=== PATIENT | male | born 1955 | race Caucasian/White ===

== ENCOUNTER 2016-08-10 08:16 | Day surgery (SDC) | payer OTHER ==
[2016-08-10] VITALS (12 sets, daily range): BP systolic 104–137; BP diastolic 68–79; PULSE 52–65; TEMP 98.3
[~2016-08-10] VITALS: Ht 175.4 cm; Wt 106.8 kg
[~2016-08-10 08:16] MED LIST: ASPIRIN 32325 MG/TAB PO; ASPIRIN 81M81 MG/TA2 PO; ASPIRIN E.C. 8181 MG PO; COLESTID5 GM/PACKE PO; CRESTOR 10MG10 MG PO; CRESTOR5 MG PO; FISH OIL1 IU PO; FISH OIL1000 MG PO; IMDUR 60MG60 MG/TAB PO; LIPITOR 40MG TA40 MG PO; LIPITOR 80MG80 MG; LIPITOR20 MG PO; NITRO-DUR0.4 MG/PAT TD; NITROQUICK0.4 MG SL; NORVASC2.5 MG PO; PLAVIX 75MG TAB75 MG PO; TOPROL XL 25MG25 MG PO; TOPROL XL 50MG50 MG PO; TYLENOL 325MG325 MG PO; ZESTRIL 5MG5 MG PO; ZESTRIL2.5 MG PO; ZETIA10 MG PO
[2016-08-10] MEDS ORDERED: NORVASC 5MG5 MG/TAB PO (08:46)
[2016-08-10 09:04] LABS: HEMATOCRIT 43.1 % (42.0-52.0); HEMOGLOBIN 15.3 g/dl (13.5-18.0); MEAN CELL VOLUME 91 fl (80.0-100.0); MEAN CORPUSCULAR HEMOGLOBIN 32 pg (27.0-31.0); MEAN CORPUSCULAR HGB CONC 36 g/dl (33.0-37.0); MEAN PLATELET VOLUME 9.4 fl (7.4-10.4); PLATELET COUNT 186 K/mm3 (130-400); RED BLOOD COUNT 4.74 M/mm3 (4.20-5.60); WHITE BLOOD COUNT 4.8 K/mm3 (4.8-10.8)
[2016-08-10 09:13] LABS: CALCIUM 9.1 mg/dL (8.4-10.2); CREATININE, serum 0.77 mg/dL (0.66-1.25); POTASSIUM 4.4 mmol/L (3.4-5.0)
[2016-08-10 09:16] LABS: INR 1.1 (0.8-3.0); PROTHROMBIN TIME 12.3 SECONDS (9.7-12.8)
[2016-08-10] MEDS ORDERED: TENORMIN 2525 MG/TAB PO (11:47)
== END 2016-08-10 14:23 | disposition home or self-care (01) ==
LOC: EUO 08:16 → COL.RAD 08:40 → EUO 14:23
PROVIDERS: Internal Medicine Cardiovascular Disease
DX: I25.10 Atherosclerotic heart disease of native coronary artery without angina pectoris (principal); I20.0 Unstable angina; R94.39 Abnormal result of other cardiovascular function study; I10 Essential (primary) hypertension; I35.1 Nonrheumatic aortic (valve) insufficiency; E78.5 Hyperlipidemia, unspecified; I25.2 Old myocardial infarction; Z95.5 Presence of coronary angioplasty implant and graft; Z80.0 Family history of malignant neoplasm of digestive organs
CPT/HCPCS: C1769; C1887; C1894; J1644; J2250; J3010

== ENCOUNTER 2017-02-25 11:38 | Day surgery (SDC) | payer OTHER ==
[2017-02-25] VITALS (482 sets, daily range): BP systolic 109–154; BP diastolic 68–95; PULSE 50–57; TEMP 97.4–98.2; O2SAT 90–100
[~2017-02-25] VITALS: Ht 175.3 cm; Wt 103.4 kg
[~2017-02-25 11:38] MED LIST changes: +NORVASC 5MG5 MG/TAB PO; +TENORMIN 2525 MG/TAB PO
[2017-02-25 12:11] LABS: HEMATOCRIT 44.1 % (42.0-52.0); HEMOGLOBIN 15.7 g/dl (13.5-18.0); MEAN CELL VOLUME 91 fl (80.0-100.0); MEAN CORPUSCULAR HEMOGLOBIN 33 pg (27.0-31.0); MEAN CORPUSCULAR HGB CONC 36 g/dl (33.0-37.0); MEAN PLATELET VOLUME 9.5 fl (7.4-10.4); PLATELET COUNT 167 K/mm3 (130-400); RED BLOOD COUNT 4.83 M/mm3 (4.20-5.60); REDCELL DISTRIBUTION WIDTH-CV 12.1 % (11.5-14.5)
[2017-02-25] MEDS ORDERED: CRESTOR20 MG PO (12:15)
[2017-02-25 12:21] LABS: INR 1.1 (0.8-3.0); PROTHROMBIN TIME 11.7 SECONDS (9.7-12.8)
[2017-02-25 12:23] LABS: CALCIUM 9.3 mg/dL (8.4-10.2); CREATININE, serum 0.83 mg/dL (0.66-1.25); POTASSIUM 4.3 mmol/L (3.4-5.0)
[2017-02-26] VITALS (484 sets, daily range): BP systolic 123–151; BP diastolic 61–108; PULSE 54–82; TEMP 97.2–98.2; O2SAT 86–99
[2017-02-26 05:21] LABS: BASO # 0.1 (0.0-0.2); BASO % 0.7 % (0.0-2.0); EOS # 0.3 (0.0-0.7); EOS % 4.2 % (0-4.0); GRAN # 4.8 (1.4-6.5); GRAN % 62.1 % (42.2-75.2); HEMATOCRIT 42.1 % (42.0-52.0); LYMPH # 1.8 (1.2-3.4); LYMPH % 23.6 % (20.0-51.0); MEAN CELL VOLUME 91 fl (80.0-100.0); MEAN CORPUSCULAR HEMOGLOBIN 32 pg (27.0-31.0); MEAN CORPUSCULAR HGB CONC 36 g/dl (33.0-37.0); MEAN PLATELET VOLUME 9.7 fl (7.4-10.4); MONO # 0.7 (0.1-0.6); PLATELET COUNT 153 K/mm3 (130-400); RED BLOOD COUNT 4.65 M/mm3 (4.20-5.60); REDCELL DISTRIBUTION WIDTH-CV 12.4 % (11.5-14.5); WHITE BLOOD COUNT 7.7 K/mm3 (4.8-10.8)
[2017-02-26 05:34] LABS: CALCIUM 8.8 mg/dL (8.4-10.2); CREATININE, serum 0.82 mg/dL (0.66-1.25); POTASSIUM 4.4 mmol/L (3.4-5.0)
== END 2017-02-26 10:30 | disposition home or self-care (01) ==
LOC: COL.CAR 11:38 → ICU 14:55 → COL.CAR 02-26 10:30
PROVIDERS: Internal Medicine Cardiovascular Disease
DX: I25.110 Atherosclerotic heart disease of native coronary artery with unstable angina pectoris (principal); Z95.5 Presence of coronary angioplasty implant and graft; E78.5 Hyperlipidemia, unspecified; I10 Essential (primary) hypertension; R01.1 Cardiac murmur, unspecified
CPT/HCPCS: OP; C1725; C1769; C1874; C1887; C9600; J0583; J1644; J2250; J3010; Q9967

== ENCOUNTER 2017-03-08 08:53 | Emergency (ER) | payer OTHER ==
[~2017-03-08] VITALS: Ht 177.8 cm; Wt 109.1 kg
[~2017-03-08 08:53] MED LIST changes: +CRESTOR20 MG PO
[2017-03-08 08:57] VITALS: TEMP 97.9
[2017-03-08 09:23] LABS: BASO # 0.1 (0.0-0.2); BASO % 1.2 % (0.0-2.0); EOS # 0.4 (0.0-0.7); EOS % 6.3 % (0-4.0); GRAN # 2.8 (1.4-6.5); GRAN % 48.7 % (42.2-75.2); HEMATOCRIT 42.9 % (42.0-52.0); HEMOGLOBIN 15.5 g/dl (13.5-18.0); LYMPH # 1.9 (1.2-3.4); LYMPH % 32.4 % (20.0-51.0); MEAN CELL VOLUME 91 fl (80.0-100.0); MEAN CORPUSCULAR HEMOGLOBIN 33 pg (27.0-31.0); MEAN CORPUSCULAR HGB CONC 36 g/dl (33.0-37.0); MEAN PLATELET VOLUME 9.7 fl (7.4-10.4); MONO # 0.6 (0.1-0.6); MONO % 11.1 % (1.7-9.3); PLATELET COUNT 174 K/mm3 (130-400); RED BLOOD COUNT 4.73 M/mm3 (4.20-5.60); REDCELL DISTRIBUTION WIDTH-CV 12.1 % (11.5-14.5); WHITE BLOOD COUNT 5.7 K/mm3 (4.8-10.8)
[2017-03-08 09:25] LABS: PROTHROMBIN TIME 11.2 SECONDS (9.7-12.8)
[2017-03-08 09:26] LABS: ADJUSTED CALCIUM 8.8 mg/dL (8.4-10.2); ALANINE AMINOTRANSFERASE 55 U/L (21-72); ALBUMIN 4.4 gm/dL (3.5-5.0); ALKALINE PHOSPHATASE 74 U/L (50-136); ANION GAP 9 mmol/L (7-16); BILIRUBIN,TOTAL 0.7 mg/dL (0.0-1.0); BLOOD UREA NITROGEN 10 mg/dL (9-20); C-REACTIVE PROTEIN < 0.5 mg/dL (0.0-0.9); CALCIUM 9.1 mg/dL (8.4-10.2); CARBON DIOXIDE 26 mmol/L (22-30); CHLORIDE 104 mmol/L (98-107); CREATININE, serum 0.79 mg/dL (0.66-1.25); GLUCOSE 119 mg/dL (74-106); POTASSIUM 4.3 mmol/L (3.4-5.0); SODIUM 139 mmol/L (137-145); TOTAL PROTEIN 7.5 gm/dL (6.4-8.2)
[2017-03-08 09:28] LABS: PARTIAL THROMBOPLASTIN TIME 31.6 SECONDS (26.0-37.0)
[2017-03-08 09:34] LABS: TROPONIN-I < 0.012 ng/mL (0.000-0.034)
[2017-03-08 11:20] VITALS: BP 125/73; PULSE 60
== END 2017-03-08 11:21 | disposition home or self-care (01) ==
LOC: COL.ER 08:53
PROVIDERS: Family Medicine
DX: R07.2 Precordial pain (principal); I25.10 Atherosclerotic heart disease of native coronary artery without angina pectoris; Z95.5 Presence of coronary angioplasty implant and graft; Z79.82 Long term (current) use of aspirin
CPT/HCPCS: J1885

== ENCOUNTER 2017-05-30 13:24 | Outpatient (RCR) | payer OTHER ==
[~2017-05-30 13:24] MED LIST changes: +IMDUR 30MG30 MG/TAB PO; +ZESTRIL 10MG10 MG PO
== END 2017-06-10 15:45 | disposition home or self-care (01) ==
LOC: COL.CR 13:24
DX: Z48.812 Encounter for surgical aftercare following surgery on the circulatory system (principal); Z95.5 Presence of coronary angioplasty implant and graft

== ENCOUNTER 2017-08-16 08:09 | Day surgery (SDC) | payer OTHER ==
[~2017-08-16] VITALS: Ht 175.4 cm; Wt 102.9 kg
[2017-08-16 09:13] LABS: HEMATOCRIT 42.8 % (42.0-52.0); HEMOGLOBIN 15.3 g/dl (13.5-18.0); MEAN CELL VOLUME 91 fl (80.0-100.0); MEAN CORPUSCULAR HEMOGLOBIN 33 pg (27.0-31.0); MEAN CORPUSCULAR HGB CONC 36 g/dl (33.0-37.0); MEAN PLATELET VOLUME 11.2 fl (7.4-10.4); PLATELET COUNT 216 K/mm3 (130-400); RED BLOOD COUNT 4.69 M/mm3 (4.20-5.60)
[2017-08-16 09:15] VITALS: BP 111/60; PULSE 53; TEMP 97.9
[2017-08-16 09:44] LABS: INR 1.1 (0.8-3.0); PROTHROMBIN TIME 12.7 SECONDS (9.7-12.8)
[2017-08-16 09:50] LABS: CREATININE, serum 0.9 mg/dL (0.66-1.25); POTASSIUM 4.6 mmol/L (3.4-5.0)
[2017-08-16 09:52] VITALS: BP 114/68; PULSE 44
[2017-08-16 10:27] VITALS: BP 94/62; PULSE 52; TEMP 98
[2017-08-16 10:45] VITALS: BP 94/62; PULSE 52; TEMP 98
[2017-08-16] MEDS ORDERED: RANEXA 500MG T500 MG PO (10:48)
[2017-08-16 10:57] VITALS: BP 102/64; PULSE 54; TEMP 98
[2017-08-16 11:12] VITALS: BP 92/60; PULSE 50; TEMP 98
== END 2017-08-16 12:58 | disposition home or self-care (01) ==
LOC: COL.CAR 08:09
PROVIDERS: Internal Medicine Cardiovascular Disease
DX: I25.110 Atherosclerotic heart disease of native coronary artery with unstable angina pectoris (principal); I10 Essential (primary) hypertension; E78.2 Mixed hyperlipidemia; I08.3 Combined rheumatic disorders of mitral, aortic and tricuspid valves; I25.2 Old myocardial infarction; Z95.5 Presence of coronary angioplasty implant and graft; Z88.1 Allergy status to other antibiotic agents; Z88.8 Allergy status to other drugs, medicaments and biological substances; Z79.82 Long term (current) use of aspirin; Z79.01 Long term (current) use of anticoagulants; Z86.010 Personal history of colon polyps; Z82.49 Family history of ischemic heart disease and other diseases of the circulatory system; Z80.0 Family history of malignant neoplasm of digestive organs
CPT/HCPCS: C1769; C1887; J1644; J2250; J3010; Q9967

== ENCOUNTER → 2018-06-27 | Outpatient (CLI) | payer OTHER ==
[~2018-06-27] MED LIST changes: +RANEXA 500MG T500 MG PO
== END ==
LOC: COL.PUL 08:00
DX: R06.09 Other forms of dyspnea (principal)

== ENCOUNTER → 2018-07-18 | Outpatient (CLI) | payer OTHER | LOC: COL.PUL 09:42 | DX: R06.09 Other forms of dyspnea (principal) | CPT/HCPCS: J7674 ==

== ENCOUNTER 2019-01-08 16:40 | Emergency (ER) | payer OTHER ==
[~2019-01-08] VITALS: Ht 175.3 cm; Wt 109.5 kg
[2019-01-08 16:43] VITALS: TEMP 97.3
[2019-01-08 17:31] LABS: BASO # 0.1 (0.0-0.2); BASO % 1.3 % (0.0-2.0); EOS # 1.3 (0.0-0.7); EOS % 15.2 % (0-4.0); GRAN % 48.7 % (42.2-75.2); HEMATOCRIT 43.8 % (42.0-52.0); HEMOGLOBIN 15.5 g/dl (13.5-18.0); LYMPH # 2.1 (1.2-3.4); LYMPH % 25.7 % (20.0-51.0); MEAN CELL VOLUME 92 fl (80.0-100.0); MEAN CORPUSCULAR HEMOGLOBIN 33 pg (27.0-31.0); MEAN CORPUSCULAR HGB CONC 35 g/dl (33.0-37.0); MEAN PLATELET VOLUME 9.6 fl (7.4-10.4); MONO # 0.7 (0.1-0.6); MONO % 8.7 % (1.7-9.3); PLATELET COUNT 178 K/mm3 (130-400); RED BLOOD COUNT 4.77 M/mm3 (4.20-5.60); REDCELL DISTRIBUTION WIDTH-CV 12.3 % (11.5-14.5)
[2019-01-08 17:36] LABS: INR 1.1 (0.8-3.0); PROTHROMBIN TIME 12.3 SECONDS (9.7-12.8)
[2019-01-08 17:39] LABS: PARTIAL THROMBOPLASTIN TIME 29.9 SECONDS (26.0-37.0)
[2019-01-08 17:43] LABS: ALANINE AMINOTRANSFERASE 60 U/L (21-72); ALKALINE PHOSPHATASE 81 U/L (50-136); ANION GAP 10 mmol/L (7-16); AST,SGOT 54 U/L (15-37); BILIRUBIN,TOTAL 0.8 mg/dL (0.0-1.0); BLOOD UREA NITROGEN 12 mg/dL (9-20); CALCIUM 9.1 mg/dL (8.4-10.2); CARBON DIOXIDE 26 mmol/L (22-30); CHLORIDE 105 mmol/L (98-107); CREATININE, serum 0.86 (0.66-1.25); GLUCOSE 111 mg/dL (74-106); SODIUM 142 mmol/L (137-145); TOTAL PROTEIN 7.5 gm/dL (6.4-8.2)
[2019-01-08 17:58] LABS: TROPONIN-I < 0.012 ng/mL (0.000-0.035)
[2019-01-08 20:34] VITALS: BP 142/79; PULSE 56
== END 2019-01-08 20:34 | disposition home or self-care (01) ==
LOC: COL.ER 16:40
PROVIDERS: Family Medicine
DX: R07.89 Other chest pain (principal); I25.10 Atherosclerotic heart disease of native coronary artery without angina pectoris; Z95.5 Presence of coronary angioplasty implant and graft; Z79.82 Long term (current) use of aspirin; Z79.02 Long term (current) use of antithrombotics/antiplatelets
CPT/HCPCS: J7030

== ENCOUNTER 2019-04-12 06:16 | Day surgery (SDC) | payer MEDICARE, OTHER ==
[2019-04-12] VITALS (11 sets, daily range): BP systolic 111–150; BP diastolic 67–102; PULSE 43–59; TEMP 98.5
[~2019-04-12] VITALS: Ht 175.4 cm; Wt 109.0 kg
[2019-04-12] MEDS ORDERED: NITRO-DUR0.4 MG/PAT TD (06:46)
[2019-04-12] MEDS ORDERED: EFFIENT10 MG PO (06:48)
[2019-04-12] MEDS ORDERED: KRILL OIL 5001 EACH PO (06:50)
[2019-04-12 06:51] LABS: HEMATOCRIT 43.4 % (42.0-52.0); HEMOGLOBIN 15.4 g/dl (13.5-18.0); MEAN CELL VOLUME 92 fl (80.0-100.0); MEAN CORPUSCULAR HEMOGLOBIN 33 pg (27.0-31.0); MEAN CORPUSCULAR HGB CONC 36 g/dl (33.0-37.0); MEAN PLATELET VOLUME 9.8 fl (7.4-10.4); PLATELET COUNT 152 K/mm3 (130-400); RED BLOOD COUNT 4.72 M/mm3 (4.20-5.60); REDCELL DISTRIBUTION WIDTH-CV 11.8 % (11.5-14.5)
[2019-04-12 06:55] LABS: PROTHROMBIN TIME 12.1 SECONDS (9.7-12.8)
[2019-04-12 06:58] LABS: CREATININE, serum 0.78 (0.66-1.25); POTASSIUM 4.5 mmol/L (3.4-5.0)
--- NOTE | 2019-04-12 09:10 | NUR ---
ALL MEDICATIONS GIVEN VORB WITH MD. SEE MERGE FOR ALL MEDICATION ADMIN TIMES. SEE MERGE FOR ALL RASS ASSESSMENTS DURING AND POST PROCEDURE. POSITIVE BARBEAU'S TEST IN THE RIGHT WRIST. RADIAL PULSE +1. NITRO PASTE APPLIED PRIOR TO PROCEDURE, REFER TO MAR.
--- NOTE | 2019-04-12 10:00 | NUR ---
Patient transported back to EU room 14 at this time. Patient hooked up to monitoring equipment, VS stable, patient denies any pain at this time. PATRIZIA Rose at bedside. Visualized TR band with RN. TR band remains in place with 12 ml of air in the band. No oozing or hematoma noted. Site soft and nontender around TR band. Cap refil <3 seconds. Discussed importance of wrist restrictions with patient and spouse. Bed in locked and lowest position, call light within reach.
--- NOTE | 2019-04-12 10:05 | NUR ---
Pt returned to EU 14 per bed s/p heart cath. Pt resting well, at bedside.
[2019-04-12] MEDS ORDERED: ZEBETA 5MG5 MG PO (10:17)
--- NOTE | 2019-04-12 12:05 | NUR ---
Pt has ambulated voided and vanessa PO intake s n/v.
--- NOTE | 2019-04-12 13:05 | NUR ---
Radial compression band removed from R radial cath site. Site remains soft, C/D/I. Site covered with bandaid and gauze and wrapped with coban. PIV removed with catheter intact.
--- NOTE | 2019-04-12 13:25 | NUR ---
Pt discharged per w/c by nurse with .
== END 2019-04-12 17:34 | disposition home or self-care (01) ==
LOC: COL.CAR 06:16
PROVIDERS: Internal Medicine Cardiovascular Disease
DX: I25.110 Atherosclerotic heart disease of native coronary artery with unstable angina pectoris (principal); Z95.5 Presence of coronary angioplasty implant and graft; I10 Essential (primary) hypertension; E78.5 Hyperlipidemia, unspecified; I08.3 Combined rheumatic disorders of mitral, aortic and tricuspid valves; I35.1 Nonrheumatic aortic (valve) insufficiency; I25.2 Old myocardial infarction; Z82.49 Family history of ischemic heart disease and other diseases of the circulatory system; Z88.1 Allergy status to other antibiotic agents; Z88.8 Allergy status to other drugs, medicaments and biological substances; Z79.899 Other long term (current) drug therapy; Z79.82 Long term (current) use of aspirin
CPT/HCPCS: C1769; C1887; J1644; J2250; J3010; Q9967

== ENCOUNTER → 2020-02-20 | Outpatient (CLI) | payer MEDICARE, OTHER ==
[~2020-02-20] MED LIST changes: +BRILINTA90 MG PO; +EFFIENT10 MG PO; +KRILL OIL 5001 EACH PO; +LIPITOR 80MG80 MG PO; -NITROQUICK0.4 MG SL; +NITROSTAT0.4 MG/TAB SL; +ZEBETA 5MG5 MG PO
== END ==
LOC: COL.LAB 08:00 → EDSTATUS 02-26 08:30 → SDCO 02-26 08:30
DX: Z86.010 Personal history of colon polyps (principal)

== ENCOUNTER 2020-03-03 17:20 | Outpatient (RCR) | payer MEDICARE, OTHER ==
[2020-03-04] MEDS ORDERED: ZEBETA 5MG5 MG PO ×2 (07:40→10:48)
[2020-03-04] MEDS ORDERED: BRILINTA90 MG PO (07:40)
[2020-03-04] MEDS ORDERED: LIPITOR 80MG80 MG PO (07:41)
[2020-03-04] MEDS ORDERED: GNC L-ARGININE500 MG PO (10:49)
== END 2020-03-09 | disposition home or self-care (01) ==
LOC: COL.CR
DX: Z48.812 Encounter for surgical aftercare following surgery on the circulatory system (principal); Z95.5 Presence of coronary angioplasty implant and graft

== ENCOUNTER 2020-03-04 06:09 | Day surgery (SDC) | payer MEDICARE, OTHER ==
[2020-03-04] VITALS (20 sets, daily range): BP systolic 88–137; BP diastolic 58–89; PULSE 44–56; TEMP 98.3
[~2020-03-04] VITALS: Ht 175.4 cm; Wt 98.6 kg
[2020-03-04 07:40] LABS: HEMATOCRIT 41.4 % (42.0-52.0); HEMOGLOBIN 14.6 g/dl (13.5-18.0); MEAN CELL VOLUME 94 fl (80.0-100.0); MEAN CORPUSCULAR HEMOGLOBIN 33 pg (27.0-31.0); MEAN CORPUSCULAR HGB CONC 35 g/dl (33.0-37.0); MEAN PLATELET VOLUME 9.8 fl (7.4-10.4); PLATELET COUNT 169 K/mm3 (130-400); RED BLOOD COUNT 4.41 M/mm3 (4.20-5.60); REDCELL DISTRIBUTION WIDTH-CV 12.5 % (11.5-14.5)
[2020-03-04] MEDS ORDERED: ZEBETA 5MG5 MG PO ×2 (07:40→10:48)
[2020-03-04] MEDS ORDERED: BRILINTA90 MG PO (07:40)
[2020-03-04] MEDS ORDERED: LIPITOR 80MG80 MG PO (07:41)
--- NOTE | 2020-03-04 07:41 | NUR ---
Initial visit; Patient had requested Carousel Attendant visit; Carousel Attendant offered comfort, encouragement and prayer prior to his surgical procedure. Patient and his thanked Carousel Attendant for visit.
[2020-03-04 07:42] LABS: INR 1.2 (0.8-3.0); PROTHROMBIN TIME 13.6 SECONDS (9.7-12.8)
[2020-03-04 07:45] LABS: CALCIUM 8.8 mg/dL (8.4-10.2); CREATININE, serum 0.76 (0.66-1.25); POTASSIUM 4.1 mmol/L (3.4-5.0)
--- NOTE | 2020-03-04 08:38 | NUR ---
SEE MERGE DOCUMENTATIONFOR MEDICATION ADMINISTRATION TIMES AND INTRA/POST PROCEDURE SEDATION ASSESSMENTS. RIGHT HAND BARBEAU TEST POSITIVE.
--- NOTE | 2020-03-04 09:16 | NUR ---
Pt returned from procedure,report from PATRIZIA Ang.
--- NOTE | 2020-03-04 10:21 | NUR ---
Pt called Krystin Ang nurse into room.Pt c/o tighness at elbow.Pressure applied by Irasema Ang.Dr Bradshaw in to see pt.ROSHAN wrap applied by high density press laborer nurse and ice as ordered by Dr Bradshaw.Will continue to monitor.
--- NOTE | 2020-03-04 10:21 | NUR ---
RN CALLED TO ROOM BY PT . PT C/O SWELLING AT RIGHT ELBOW. SWELLING NOTED BY RN; PRESSURE IMMEDIATELY APPLIED. DR CRAIG NOTIFIED AND ARRIVING TO SEE PT. HEMATOMA MANUALLY REDUCED BY THIS RN. ORDERS TO APPLY ROSHAN WRAP AND ICE TO AFFECTED AREA. PT EDUCATED OF CONTINUED S/SX TO REPORT TO NURSE. PT DENIES PAIN OR SENSATION CHANGE TO RIGHT HAND. CAPILLARY REFILL <3 SEC, ADEQUATE SPO2 WAVEFORM FROM RIGHT INDEX FINGER PRESENT ON MONITOR. PATRIZIA HERRERA PRESENT AND UPDATED.
[2020-03-04] MEDS ORDERED: GNC L-ARGININE500 MG PO (10:49)
--- NOTE | 2020-03-04 11:43 | NUR ---
Pressure held to right arm.Dr jenni Walsh Rn in to assess site.
--- NOTE | 2020-03-04 12:10 | NUR ---
Pressure held for 10 min as ordered,another 10min ordered.will continue to monitor.
--- NOTE | 2020-03-04 12:20 | NUR ---
ORDER FROM DR HARDIN TO PLACE 2ND TR BAND PROXIMAL TO FIRST BAND AT SLIGHTLY LOWER PRESSURE. INITIAL BAND OVER PUNCTURE SITE WITH 8 CC AIR PER PATRIZIA HERRERA. 2ND BAND PLACED PROXIMAL TO THIS WITH 5 CC AIR. REPORT OF THIS GIVEN TO PATRIZIA HERRERA AND DR HARDIN.
--- NOTE | 2020-03-04 13:34 | NUR ---
1 ml of air removed from TR band.
--- NOTE | 2020-03-04 17:28 | NUR ---
Discharge instructions given to pt.Pt verbalizes understanding.INT removed,catheter tip intact.Pt escorted out via wheelchair by this nurse.
== END 2020-03-04 17:35 | disposition home or self-care (01) ==
LOC: COL.CAR 06:09
PROVIDERS: Internal Medicine Cardiovascular Disease
DX: I25.110 Atherosclerotic heart disease of native coronary artery with unstable angina pectoris (principal); I10 Essential (primary) hypertension; I25.2 Old myocardial infarction; E78.2 Mixed hyperlipidemia; Z95.5 Presence of coronary angioplasty implant and graft; I34.1 Nonrheumatic mitral (valve) prolapse; Z88.8 Allergy status to other drugs, medicaments and biological substances; Z88.1 Allergy status to other antibiotic agents; Z79.82 Long term (current) use of aspirin
CPT/HCPCS: J1644; J2250; J3010; Q9967

== ENCOUNTER 2020-03-12 13:46 | Outpatient (RCR) | payer MEDICARE, OTHER ==
[~2020-03-12 13:46] MED LIST changes: +GNC L-ARGININE500 MG PO
== END 2020-03-14 10:24 | disposition home or self-care (01) ==
LOC: COL.CR 13:46
DX: Z48.812 Encounter for surgical aftercare following surgery on the circulatory system (principal); Z95.5 Presence of coronary angioplasty implant and graft

== ENCOUNTER 2020-03-25 08:02 | Day surgery (SDC) | payer MEDICARE, OTHER ==
[~2020-03-25] VITALS: Ht 175.3 cm; Wt 98.5 kg
[2020-03-25 08:51] VITALS: BP 113/86; PULSE 59; TEMP 97.9
[2020-03-25 09:40] VITALS: BP 104/77; PULSE 61; TEMP 98.2
[2020-03-25 09:55] VITALS: BP 101/66; PULSE 56
[2020-03-25 10:10] VITALS: BP 119/73; PULSE 55
== END 2020-03-25 10:20 | disposition home or self-care (01) ==
LOC: SDCO
DX: Z12.11 Encounter for screening for malignant neoplasm of colon (principal); Z86.010 Personal history of colon polyps; K64.0 First degree hemorrhoids; K62.89 Other specified diseases of anus and rectum; I25.10 Atherosclerotic heart disease of native coronary artery without angina pectoris; I25.2 Old myocardial infarction; I35.1 Nonrheumatic aortic (valve) insufficiency; E78.5 Hyperlipidemia, unspecified; Z95.818 Presence of other cardiac implants and grafts; Z20.828 Contact with and (suspected) exposure to other viral communicable diseases; Z79.82 Long term (current) use of aspirin; Z79.899 Other long term (current) drug therapy; Z79.02 Long term (current) use of antithrombotics/antiplatelets; Z88.1 Allergy status to other antibiotic agents; Z88.8 Allergy status to other drugs, medicaments and biological substances
CPT/HCPCS: J2704; J7120

== ENCOUNTER 2020-10-17 13:17 | Outpatient (RCR) | payer MEDICARE, OTHER | END 2020-10-21 | disposition home or self-care (01) | LOC: COL.CR | DX: Z48.812 Encounter for surgical aftercare following surgery on the circulatory system (principal); Z95.5 Presence of coronary angioplasty implant and graft ==

== ENCOUNTER 2020-11-21 15:16 | Outpatient (RCR) | payer MEDICARE, OTHER | END 2020-11-24 06:34 | disposition still patient (30) | LOC: COL.CR 15:16 | DX: Z48.812 Encounter for surgical aftercare following surgery on the circulatory system (principal); Z95.5 Presence of coronary angioplasty implant and graft ==

== ENCOUNTER 2020-12-01 14:19 | Outpatient (RCR) | payer SELFPAY | END 2021-02-22 | disposition home or self-care (01) | LOC: COL.CR | DX: Z02.89 Encounter for other administrative examinations (principal) ==

== ENCOUNTER → 2021-02-25 | Outpatient (CLI) | payer MEDICARE, OTHER | LOC: COL.RAD 08:02 | DX: M47.812 Spondylosis without myelopathy or radiculopathy, cervical region (principal) ==

== ENCOUNTER 2022-01-01 16:39 | Emergency (ER) | payer MEDICARE, OTHER ==
[~2022-01-01] VITALS: Ht 175.3 cm; Wt 95.5 kg
[~2022-01-01 16:39] MED LIST changes: +CARDIZEM120 MG PO; +PRINIVIL10 MG PO
[2022-01-01 17:02] LABS: HEMOGLOBIN 15.5 g/dl (13.5-18.0); MEAN CELL VOLUME 91 fl (80.0-100.0); MEAN CORPUSCULAR HEMOGLOBIN 33 pg (27-31); MEAN CORPUSCULAR HGB CONC 36 g/dl (33.0-37.0); MEAN PLATELET VOLUME 10.4 fl (7.4-10.4); PLATELET COUNT 127 K/mm3 (130-400); RED BLOOD COUNT 4.74 M/mm3 (4.20-5.60); REDCELL DISTRIBUTION WIDTH-CV 12.2 % (11.5-14.5)
[2022-01-01 17:17] LABS: PARTIAL THROMBOPLASTIN TIME 30.8 SECONDS (26.0-37.0)
[2022-01-01 17:21] LABS: ALANINE AMINOTRANSFERASE 44 U/L (0-55); ALBUMIN 3.5 gm/dL (3.4-4.8); ALKALINE PHOSPHATASE 72 U/L (40-150); ANION GAP 12 mmol/L (7-16); AST,SGOT 35 U/L (5-34); BILIRUBIN,TOTAL 0.6 mg/dL (0.2-1.2); BLOOD UREA NITROGEN 15 mg/dL (8-26); CALCIUM 8.8 mg/dL (8.4-10.2); CARBON DIOXIDE 23 mmol/L (23-31); CHLORIDE 104 mmol/L (98-107); CREATININE, serum 0.98 mg/dL (0.72-1.25); GLUCOSE 147 mg/dL (70-99); POTASSIUM 4.1 mmol/L (3.5-4.5); SODIUM 139 mmol/L (136-145); TOTAL PROTEIN 7.2 gm/dL (6.2-8.1)
[2022-01-01 17:39] LABS: TROPONIN-I < 0.010 ng/mL (0.00-0.033)
[2022-01-01 19:05] LABS: EOSINOPHIL 1 % (0-4); LYMPHOCYTE 59 % (20.0-51.0); NEUTROPHILS 23 % (42.0-75.2)
[2022-01-01 19:13] LABS: PLATELET ESTIMATE DECREASED (NORMAL)
[2022-01-01 20:50] VITALS: BP 122/85; PULSE 63
[2022-01-02 08:55] LABS: PATHOLOGY DIFF REVIEW OK +
== END 2022-01-01 20:50 | disposition home or self-care (01) ==
LOC: COL.ER 16:39
PROVIDERS: Emergency Medicine
DX: U07.1 COVID-19 (principal); D72.819 Decreased white blood cell count, unspecified; Z95.5 Presence of coronary angioplasty implant and graft; Z28.310 Unvaccinated for COVID-19

== ENCOUNTER 2022-03-23 15:58 | Observation (INO) | payer MEDICARE, OTHER ==
[~2022-03-23] VITALS: Ht 175.3 cm; Wt 94.3 kg
[2022-03-23 16:48] LABS: BASO # 0.1 K/mm3 (0.0-0.2); EOS # 0.6 K/mm3 (0.0-0.7); EOS % 8.6 % (0.0-4.0); GRAN # 3.5 K/mm3 (1.4-6.5); GRAN % 49.8 % (42.2-75.2); HEMATOCRIT 38.8 % (42.0-52.0); LYMPH # 2.1 K/mm3 (1.2-3.4); MEAN CELL VOLUME 92 fl (80.0-100.0); MEAN CORPUSCULAR HEMOGLOBIN 33 pg (27-31); MEAN CORPUSCULAR HGB CONC 36 g/dl (33.0-37.0); MEAN PLATELET VOLUME 9.3 fl (7.4-10.4); MONO # 0.7 K/mm3 (0.1-0.6); MONO % 10.5 % (1.7-9.3); PLATELET COUNT 189 K/mm3 (130-400); RED BLOOD COUNT 4.24 M/mm3 (4.20-5.60); REDCELL DISTRIBUTION WIDTH-CV 12.3 % (11.5-14.5)
[2022-03-23 17:08] LABS: ALANINE AMINOTRANSFERASE 21 U/L (0-55); ALBUMIN 3.8 gm/dL (3.4-4.8); ALKALINE PHOSPHATASE 87 U/L (40-150); ANION GAP 10 mmol/L (7-16); AST,SGOT 19 U/L (5-34); BILIRUBIN,TOTAL 0.6 mg/dL (0.2-1.2); BLOOD UREA NITROGEN 14 mg/dL (8-26); CALCIUM 9.4 mg/dL (8.4-10.2); CARBON DIOXIDE 23 mmol/L (23-31); CHLORIDE 105 mmol/L (98-107); CREATININE, serum 0.89 mg/dL (0.72-1.25); GLUCOSE 126 mg/dL (70-99); POTASSIUM 4.2 mmol/L (3.5-4.5); SODIUM 138 mmol/L (136-145); TOTAL PROTEIN 7.2 gm/dL (6.2-8.1)
[2022-03-23 17:15] LABS: TROPONIN-I < 0.010 ng/mL (0.00-0.033)
[2022-03-23] MEDS ORDERED: NORVASC 5MG5 MG/TAB PO (18:52)
[2022-03-23] MEDS ORDERED: PRINIVIL10 MG PO (18:53)
[2022-03-23] MEDS ORDERED: ZETIA 10MG TAB10 MG PO (21:19)
[2022-03-23 23:08] LABS: HEMOGLOBIN 12.8 g/dl (13.5-18.0); MEAN CELL VOLUME 92 fl (80.0-100.0); MEAN CORPUSCULAR HEMOGLOBIN 33 pg (27-31); MEAN CORPUSCULAR HGB CONC 36 g/dl (33.0-37.0); MEAN PLATELET VOLUME 9.5 fl (7.4-10.4); PLATELET COUNT 162 K/mm3 (130-400); RED BLOOD COUNT 3.91 M/mm3 (4.20-5.60); REDCELL DISTRIBUTION WIDTH-CV 12.5 % (11.5-14.5)
[2022-03-23 23:16] LABS: HEMATOCRIT 36.1 % (42.0-52.0)
[2022-03-23 23:19] LABS: INR 1.2 (0.8-3.0); PROTHROMBIN TIME 13.4 SECONDS (9.7-12.8)
[2022-03-23 23:22] LABS: PARTIAL THROMBOPLASTIN TIME 32.3 SECONDS (26.0-37.0)
[2022-03-24] VITALS (16 sets, daily range): BP systolic 98–133; BP diastolic 53–83; PULSE 50–66; TEMP 97.7–98.1
[2022-03-24 06:23] LABS: CREATININE, serum 0.77 mg/dL (0.72-1.25); MAGNESIUM 2.1 mg/dL (1.6-2.6)
[2022-03-24 06:37] LABS: BASO # 0.1 K/mm3 (0.0-0.2); BASO % 0.9 % (0.0-2.0); EOS # 0.6 K/mm3 (0.0-0.7); EOS % 7.9 % (0.0-4.0); GRAN # 3.9 K/mm3 (1.4-6.5); GRAN % 52.4 % (42.2-75.2); HEMATOCRIT 38.5 % (42.0-52.0); HEMOGLOBIN 13.9 g/dl (13.5-18.0); LYMPH # 2.2 K/mm3 (1.2-3.4); LYMPH % 29.9 % (20.0-51.0); MEAN CELL VOLUME 93 fl (80.0-100.0); MEAN CORPUSCULAR HEMOGLOBIN 33 pg (27-31); MEAN CORPUSCULAR HGB CONC 36 g/dl (33.0-37.0); MEAN PLATELET VOLUME 9.7 fl (7.4-10.4); MONO # 0.6 K/mm3 (0.1-0.6); MONO % 8.6 % (1.7-9.3); PLATELET COUNT 169 K/mm3 (130-400); RED BLOOD COUNT 4.16 M/mm3 (4.20-5.60); REDCELL DISTRIBUTION WIDTH-CV 12.4 % (11.5-14.5)
--- NOTE | 2022-03-24 08:43 | NUR ---
PT ADMITTED TO UNIT. ADMISSION INTAKE AND ASSESSMENT COMPLETED. MED REC UPDATED. PT AND ORIENTED TO ROOM, UPDATED ON POC, ALL QUESTIONS ANSWERED. CALL LIGHT WITHIN REACH. HEPARIN GTT INFUSING. PT DENIES ANY CHEST PAIN OR SOB. WILL CONTINUE TO MONITOR. NPO AT THIS TIME.
[2022-03-24] MEDS ORDERED: SALONPAS1 EACH TP (08:52)
--- NOTE | 2022-03-24 12:47 | NUR ---
Jada: No yarsani preference Situation: Clinical Consultant stopped by room on rounds Background: Pt was resting and content Assessment: Pt has no needs right now. Pt appreciated the visit Recommendation: lumber racker will follow up as needed
--- NOTE | 2022-03-24 13:07 | NUR ---
Religious Leader met with patient to discuss discharge planning. Patient lives in between [facility] with his , Suzanna (ph#[phone]) who is at bedside. Patient sees Dr. Carlos for primary care and obtains medications from [facility] with no difficulties. Patient does not use any DME and is independent with ADLS. Patient is a rich and reports he lives an active lifestyle. Patient advised his , Suzanna is his DPOA-HC. Patient plans to return home at time of discharge. Discharge Plan: Home
--- NOTE | 2022-03-24 14:26 | NUR ---
See merge for all medication, assessment, intervention, and vital sign times.
--- NOTE | 2022-03-24 21:15 | NUR ---
BP MEDS HELD D/T BP 102/57
[2022-03-25 04:18] VITALS: BP 109/54; PULSE 57; TEMP 98
--- NOTE | 2022-03-25 06:06 | NUR ---
RT RADIAL SITE W/O BLEEDING OR HEMATOMA NOTED, NO REPORTS OF PAIN OR DISCOMFORT THIS SHIFT, NO N/V, UP AD SUNSHINE IN ROOM.
--- NOTE | 2022-03-25 06:24 | NUR ---
pt resting in bed with eyes closed after norco and morphine given @ 0420. urinated x1 using urinal, calls for help appropriately. alarms on for fall risk. remains on 2L O2 to maintain sats >90%
[2022-03-25 08:04] VITALS: BP 129/66; PULSE 85; TEMP 98.2
[2022-03-25] MEDS ORDERED: IMDUR 30MG30 MG/TAB PO (09:07)
[2022-03-25] MEDS ORDERED: PLAVIX 75MG TAB75 MG PO (09:07)
[2022-03-25] MEDS ORDERED: NORVASC 5MG5 MG/TAB PO (09:07)
--- NOTE | 2022-03-25 11:28 | NUR ---
Discussion with patient about risk factors for heart disease. Pt reports previously completing Cardiac rehab at [facility]. Staff discussed home exercise needs and if questions or concerns arrise - dept phone number reviewed with patient. Also discussed if interested, new referral could be obtained from Seam Taper Machine/PCP - pt verbalized understanding. Approx 10 minutes spent with pt, 5 minutes of chart review.
--- NOTE | 2022-03-25 11:50 | NUR ---
DISCHARGE INSTRUCTIONS GIVEN, AT BEDSIDE, ALL QUESTIONS ANSWERED. IV D/C. TELE D/C. PT ESCORTED OFF OF UNIT. WILL D/C FROM SYSTEM.
--- NOTE | 2022-03-25 13:43 | NUR ---
Primary nurse was assisted with [phone] patient care by [employer] student Chani Fitzgerald and [employer] instructor Reena MENA-GAVIOTA, RN
== END 2022-03-25 12:13 | disposition home or self-care (01) ==
LOC: COL.ER 15:58 → MEDICAL 18:41
PROVIDERS: Emergency Medicine; Student in an Organized Health Care Education/Training Program; ADMIT Internal Medicine
DX: I25.119 Atherosclerotic heart disease of native coronary artery with unspecified angina pectoris (principal); F17.200 Nicotine dependence, unspecified, uncomplicated; Z95.5 Presence of coronary angioplasty implant and graft; Z79.02 Long term (current) use of antithrombotics/antiplatelets
CPT/HCPCS: C1769; G0378; J1644; J2250; J2270; J3010; J7030; Q9967

== ENCOUNTER 2023-06-08 13:04 | Outpatient (RCR) | payer MEDICARE, OTHER ==
[~2023-06-08 13:04] MED LIST changes: +SALONPAS1 EACH TP; +ZETIA 10MG TAB10 MG PO
== END 2023-06-09 | disposition home or self-care (01) ==
LOC: COL.CR
DX: Z48.812 Encounter for surgical aftercare following surgery on the circulatory system (principal); Z95.5 Presence of coronary angioplasty implant and graft

== ENCOUNTER 2023-07-29 13:07 | Inpatient (IN) | payer MEDICARE, OTHER ==
[2023-07-29] VITALS (259 sets, daily range): BP systolic 129; BP diastolic 73; PULSE 91; TEMP 97.8; O2SAT 91–99
[~2023-07-29] VITALS: Ht 175.3 cm; Wt 94.4 kg
[2023-07-29 13:46] LABS: BASO # 0.1 K/mm3 (0.0-0.2); BASO % 0.8 % (0.0-2.0); EOS # 0.4 K/mm3 (0.0-0.7); EOS % 6.3 % (0.0-4.0); GRAN # 3.6 K/mm3 (1.4-6.5); GRAN % 56.6 % (42.2-75.2); HEMATOCRIT 44.6 % (42.0-52.0); LYMPH # 1.7 K/mm3 (1.2-3.4); LYMPH % 27.3 % (20.0-51.0); MEAN CELL VOLUME 92 fl (80.0-100.0); MEAN CORPUSCULAR HEMOGLOBIN 33 pg (27-31); MEAN CORPUSCULAR HGB CONC 36 g/dl (33.0-37.0); MEAN PLATELET VOLUME 9.4 fl (7.4-10.4); MONO # 0.6 K/mm3 (0.1-0.6); PLATELET COUNT 156 K/mm3 (130-400); RED BLOOD COUNT 4.84 M/mm3 (4.20-5.60); REDCELL DISTRIBUTION WIDTH-CV 12.1 % (11.5-14.5)
[2023-07-29 14:02] LABS: ALANINE AMINOTRANSFERASE 21 U/L (0-55); ALBUMIN 3.8 gm/dL (3.4-4.8); ALKALINE PHOSPHATASE 73 U/L (40-150); ANION GAP 12 mmol/L (7-16); AST,SGOT 19 U/L (5-34); BILIRUBIN,TOTAL 0.8 mg/dL (0.2-1.2); BLOOD UREA NITROGEN 17 mg/dL (8-26); CARBON DIOXIDE 21 mmol/L (23-31); CHLORIDE 108 mmol/L (98-107); CREATININE, serum 0.87 mg/dL (0.72-1.25); GLUCOSE 126 mg/dL (70-99); POTASSIUM 4.1 mmol/L (3.5-4.5); SODIUM 141 mmol/L (136-145); TOTAL PROTEIN 6.8 gm/dL (6.2-8.1)
[2023-07-29 14:09] LABS: TROPONIN-I < 0.010 ng/mL (0.00-0.033)
[2023-07-29] MEDS ORDERED: Nitroglycerin/D5W 250 ML IV ONE (15:15)
[2023-07-29] MEDS ORDERED: Heparin 5,000 UNITS/ML 1 ML VIAL IV ONE (15:15)
[2023-07-29] MEDS ORDERED: Heparin/D5W 250 ML IV SCH (15:15)
[2023-07-29] MEDS ORDERED: Heparin 5,000 UNITS/ML 1 ML VIAL IV PRN (15:15)
[2023-07-29] MEDS ORDERED: JARDIANCE10 PO (15:28)
--- NOTE | 2023-07-29 16:19 | NUR ---
Follow up phone call and spoke with pt/. Pt was admitted and plan is to do a heart cath on Tuesday.
[2023-07-29] MEDS ORDERED: Acetaminophen 325 MG TAB PO PRN (16:45)
[2023-07-29] MEDS ORDERED: Ondansetron 4 MG/2 ML VIAL IV PRN (16:45)
[2023-07-29] MEDS ORDERED: Isosorbide Mononitrate CR (24-HR) 30 MG TAB PO SCH (17:30)
[2023-07-29 17:55] LABS: HEMATOCRIT 45.3 % (42.0-52.0); HEMOGLOBIN 16.3 g/dl (13.5-18.0); MEAN CELL VOLUME 93 fl (80.0-100.0); MEAN CORPUSCULAR HEMOGLOBIN 33 pg (27-31); MEAN CORPUSCULAR HGB CONC 36 g/dl (33.0-37.0); MEAN PLATELET VOLUME 9.5 fl (7.4-10.4); PLATELET COUNT 162 K/mm3 (130-400); RED BLOOD COUNT 4.89 M/mm3 (4.20-5.60); REDCELL DISTRIBUTION WIDTH-CV 12.2 % (11.5-14.5)
[2023-07-29 17:58] LABS: INR 1.2 (0.8-3.0)
[2023-07-29 18:13] LABS: PARTIAL THROMBOPLASTIN TIME 186.5 SECONDS (26.0-37.0)
--- NOTE | 2023-07-29 18:33 | NUR ---
PT ADMITTED FROM ED AT 1730. PT ABLE TO STAND AND TRANSFER FROM ED COT TO ICU BED. NITRO AND HEPARIN INFUSING ORDERED TO PERIPHERAL IV IN R WRIST. SECOND IV SITE STARTED TO L WRIST. PT ALERT AND ORIENTED, INSTRUCTED TO USE CALL LIGHT FOR NEEDS.
[2023-07-29] MEDS ORDERED: Glucagon 1 MG VIAL IM PRN (20:00)
[2023-07-29] MEDS ORDERED: Dextrose 50% Water 25 GM/50 ML SYRINGE IV PRN (20:00)
[2023-07-29] MEDS ORDERED: Dextrose (Glucose) 15 GM (4 x 3.75 GM) Chewable TABLET PACK PO PRN (20:00)
--- NOTE | 2023-07-29 20:33 | NUR ---
Patient resting quietly in bed. Denies pain or discomfort. Vitals within normal limits. Continues to receive heparin and nitro drips, see IV drip titrations.
[2023-07-29] MEDS ORDERED: Insulin Aspart (NovoLOG) SQ SCH (21:00)
[2023-07-30] VITALS (1250 sets, daily range): BP systolic 123–167; BP diastolic 71–89; PULSE 49–59; TEMP 97.3–98.1; O2SAT 81–100
[2023-07-30 06:25] LABS: BASO # 0.1 K/mm3 (0.0-0.2); BASO % 1.1 % (0.0-2.0); EOS # 0.4 K/mm3 (0.0-0.7); EOS % 7.5 % (0.0-4.0); GRAN # 2.8 K/mm3 (1.4-6.5); GRAN % 51.8 % (42.2-75.2); HEMATOCRIT 43.5 % (42.0-52.0); HEMOGLOBIN 15.7 g/dl (13.5-18.0); LYMPH # 1.6 K/mm3 (1.2-3.4); LYMPH % 29.6 % (20.0-51.0); MEAN CELL VOLUME 93 fl (80.0-100.0); MEAN CORPUSCULAR HEMOGLOBIN 34 pg (27-31); MEAN CORPUSCULAR HGB CONC 36 g/dl (33.0-37.0); MEAN PLATELET VOLUME 9.7 fl (7.4-10.4); MONO # 0.6 K/mm3 (0.1-0.6); PLATELET COUNT 145 K/mm3 (130-400); RED BLOOD COUNT 4.69 M/mm3 (4.20-5.60); REDCELL DISTRIBUTION WIDTH-CV 12.3 % (11.5-14.5)
[2023-07-30 06:46] LABS: CALCIUM 8.8 mg/dL (8.4-10.2); CREATININE, serum 0.79 mg/dL (0.72-1.25); POTASSIUM 4.2 mmol/L (3.5-4.5)
[2023-07-30] MEDS ORDERED: Clopidogrel 75 MG TAB PO SCH (09:00)
[2023-07-30] MEDS ORDERED: Ezetimibe 10 MG TAB PO SCH (09:00)
[2023-07-30] MEDS ORDERED: Bisoprolol 5 MG TAB PO SCH (09:00)
--- NOTE | 2023-07-30 09:50 | NUR ---
patient alert and oriented x4. eating breakfast in his bedside chair. patient is pleasant this am. shift assessment complited. denies having any chest pain at this time but reported when physical therapy helped him to chair he felt a slight pressure on his chest then after he sat for a bit it was relieved. patient reports no concerns at this time. call light within reach.
--- NOTE | 2023-07-30 13:41 | NUR ---
Data: Patient's saw Supervisor Central Supply in the hallway of ICU and requested coffee for Patient. Supervisor Central Supply got some coffee and then visited with Patient and his . 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 Patient is having a heart procedure on Tuesday. Assessment: Patient and are trusting the doctors; have been through this before; have benedicto in God; use humor to alleviate stress. Plan of Care: Supervisor Central Supply provided supportive listening; Proverbs 17:22 at 's request; and prayer.
--- NOTE | 2023-07-30 15:29 | NUR ---
PATIENT SITTING IN CHAIR CONVERSATING WITH . PATIENT REPORTS INTERMITTEN PAIN/PRESSURE RATING IT AT A 1/10 AND OTHER THE MOST REPORTED WAS 2/10. PATIENT REFUSED LUNCH. CALL LIGHT WITHIN REACH.
--- NOTE | 2023-07-30 18:37 | NUR ---
lab called to come draw labs that have been past due. [employer]angel[employer] conservation laborer verbalized coming up as soon as possible.
--- NOTE | 2023-07-30 18:40 | NUR ---
1620 REPORT OBTAINED FROM MEDICAL RN. 1720 PT ARRIVED TO ICU VIA MECIAL BED. PT ALERT AND ORIENTED. PT OFF BIPAP AND EATING/ DRINKING PER MEDICAL NURSE BLOOD GLUCOSE CHECK WAS 69, PER PT REQUEST TO EAT AND NOT TAKE GLUCOSE TAB. RECHECK DONE AN ARRIVAL TO ICU BLOOD GLUCOSE 91. PT FINISHED EATING THEN RESPIRATORY CAME BACK TO PLACE BIPAP BACK ON PT. PT FOLLOWED PT TO ICU, PT TOOK MOST OF BELONGINGS HOME. CELL PHONE AND CELL PHONE RIP SAW OPERATOR LEFT WITH PT. UPDATED ON VISITING HOURS AND STATED HE WOULD BE BACK IN THE MORNING.
--- NOTE | 2023-07-30 21:00 | NUR ---
Patient resting quietly in bed watching TV. Denies pain or discomfort. Continues to receive heparin drip, see IV drip titrations. Vitals within normal limits. No further needs noted at this time.
[2023-07-31] VITALS (1424 sets, daily range): BP systolic 122–166; BP diastolic 67–91; PULSE 52–73; TEMP 97.4–98.4; O2SAT 86–100
[2023-07-31 06:11] LABS: BASO # 0.1 K/mm3 (0.0-0.2); BASO % 0.9 % (0.0-2.0); EOS # 0.4 K/mm3 (0.0-0.7); GRAN # 2.7 K/mm3 (1.4-6.5); GRAN % 50.9 % (42.2-75.2); HEMATOCRIT 45.9 % (42.0-52.0); HEMOGLOBIN 16.5 g/dl (13.5-18.0); LYMPH # 1.5 K/mm3 (1.2-3.4); LYMPH % 29.2 % (20.0-51.0); MEAN CELL VOLUME 92 fl (80.0-100.0); MEAN CORPUSCULAR HEMOGLOBIN 33 pg (27-31); MEAN CORPUSCULAR HGB CONC 36 g/dl (33.0-37.0); MEAN PLATELET VOLUME 9.5 fl (7.4-10.4); MONO # 0.6 K/mm3 (0.1-0.6); MONO % 10.6 % (1.7-9.3); PLATELET COUNT 150 K/mm3 (130-400); RED BLOOD COUNT 4.99 M/mm3 (4.20-5.60); REDCELL DISTRIBUTION WIDTH-CV 12.1 % (11.5-14.5)
[2023-07-31 06:33] LABS: CALCIUM 9.1 mg/dL (8.4-10.2); CREATININE, serum 0.87 mg/dL (0.72-1.25); POTASSIUM 4.1 mmol/L (3.5-4.5)
--- NOTE | 2023-07-31 07:00 | NUR ---
Report received from PATRIZIA Mendoza. Pt alert and oriented this AM. Sitting up in chair watching TV. Requests cup of coffee. Reports no chest pain at this time. Remains on nitro and heparin gtts. Breakfast ordered. Call light in reach and chair alarm on.
--- NOTE | 2023-07-31 11:58 | NUR ---
SW met with patient to complete intake. Patient provides he lives in [place] with spouse Suzanna Messer [phone]. Patient states he is independent with ADLs, does not utilize DME nor home health services at this time. PCP is Dr. Carlos, and pharmacy is [facility]. Patient provides he plans to return to his home upon dc. SW will continue to follow. DC plan: home
[2023-08-01] VITALS (1156 sets, daily range): BP systolic 115–171; BP diastolic 58–97; PULSE 51–72; TEMP 97.4–98.6; O2SAT 90–100
[2023-08-01 05:39] LABS: HEMATOCRIT 44.3 % (42.0-52.0); MEAN CELL VOLUME 92 fl (80.0-100.0); MEAN CORPUSCULAR HEMOGLOBIN 33 pg (27-31); MEAN CORPUSCULAR HGB CONC 36 g/dl (33.0-37.0); MEAN PLATELET VOLUME 9.4 fl (7.4-10.4); PLATELET COUNT 150 K/mm3 (130-400); RED BLOOD COUNT 4.82 M/mm3 (4.20-5.60); REDCELL DISTRIBUTION WIDTH-CV 12.1 % (11.5-14.5)
[2023-08-01 05:57] LABS: ALBUMIN 3.5 gm/dL (3.4-4.8); BILIRUBIN,TOTAL 0.8 mg/dL (0.2-1.2); CALCIUM 8.8 mg/dL (8.4-10.2); CREATININE, serum 0.93 mg/dL (0.72-1.25); POTASSIUM 4.3 mmol/L (3.5-4.5); TOTAL PROTEIN 6.4 gm/dL (6.2-8.1)
--- NOTE | 2023-08-01 07:00 | NUR ---
Report received from PATRIZIA Nair. Reviewed heparin drip rate and nitro drip rate. Reivewed labs and POC. Plan for heart cath today. Pt currently NPO. Pt sitting up in bed watching TV. Currently denies chest pain or pressure. Pt understands plan for day. All questions answered. Call light within reach. Will continue with POC.
--- NOTE | 2023-08-01 08:46 | NUR ---
Pt left floor for heart cath. Called and updated pt prior to him leaving floor.
--- NOTE | 2023-08-01 09:02 | NUR ---
SEE MERGE FOR ALL INTERVENTIONS, MEDICATIONS, AND VITAL SIGNS. HEPARIN GTT AND NITRO GTT STOPPED PRIOR TO PROCEDURE PER PHYSICIAN ORDER.
[2023-08-01] MEDS ORDERED: Heparin 1,000 UNITS/ML 10 ML Multi-Dose VIAL IV SCH (09:06)
[2023-08-01] MEDS ORDERED: Nitroglycerin 100 MCG/ML (Cath Lab) 10 ML VIAL IA SCH (09:08)
[2023-08-01] MEDS ORDERED: Heparin 1,000 UNITS/ML 10 ML Multi-Dose VIAL IA SCH (09:10)
[2023-08-01] MEDS ORDERED: Iohexol 350 - 100 ML VIAL IA ONE (09:10)
[2023-08-01] MEDS ORDERED: Verapamil 2.5 MG/ML 2 ML VIAL IA SCH (09:11)
[2023-08-01] MEDS ORDERED: Bivalirudin 250 MG in NS 50 ML IV SCH (10:07)
[2023-08-01] MEDS ORDERED: Midazolam 2 MG/2 ML VIAL IV SCH (10:09)
[2023-08-01] MEDS ORDERED: fentaNYL 50 MCG/ML 2 ML VIAL IV SCH (10:10)
[2023-08-01] MEDS ORDERED: Clopidogrel 300 MG DOSE (75 mg x 4 tabs) PO SCH (10:15)
--- NOTE | 2023-08-01 10:50 | NUR ---
[facility] Pt is oriented x4. Denies pain. Site to right groin is soft and non-tender. Dressing is CDI. Pt at bedside. Pt has 4 hour flat time. Vital signs are stable. Will continue with post-op checks. Call light within reach. Will continue with POC.
[2023-08-01] MEDS ORDERED: Nitroglycerin/D5W 250 ML IV SCH (11:00)
[2023-08-01] MEDS ORDERED: 1/2 NS 1,000 ML IV SCH (11:00)
--- NOTE | 2023-08-01 13:04 | NUR ---
Re: referral to Outpatient Cardiac Rehab. Patient has recently completed outpatient Cardiac Rehab. Reviewed home precautions with heart cath. Patient and verbalized understanding of when to call MD. Patient states he will call to schedule initial/orientation into program. Staff reviewed program length and coverage of insurance. Questions and concerns were answered by staff. Rhianna toledo was also in attendance.
--- NOTE | 2023-08-01 14:38 | NUR ---
Pt flat time ended at 1415. Pt tolerated getting up with standby assist to bathroom and had BM. Site to right groin is soft and non-tender. Slight shadowing noted on right corner of dressing but is CDI. Pt back to bed. C/o slight headache but deines other pain. Call light within reach.
--- NOTE | 2023-08-01 19:15 | NUR ---
Patient resting quietly in bed watching TV. Reports improving headache but otherwise denies pain or discomfort. Vitals within normal limits. Continues to receive nitro drip, see IV drip titrations. Scant drainage noted to R groin cath access site; it is soft to palpation and without hematoma formation. All pulses palpable.
[2023-08-02] VITALS (39 sets, daily range): BP systolic 130–143; BP diastolic 74–80; PULSE 49–59; TEMP 98.1–98.5; O2SAT 61–99
[2023-08-02 05:59] LABS: BASO # 0.1 K/mm3 (0.0-0.2); BASO % 0.8 % (0.0-2.0); EOS # 0.4 K/mm3 (0.0-0.7); EOS % 5.7 % (0.0-4.0); GRAN # 4.6 K/mm3 (1.4-6.5); GRAN % 61.3 % (42.2-75.2); HEMOGLOBIN 15.7 g/dl (13.5-18.0); LYMPH # 1.6 K/mm3 (1.2-3.4); LYMPH % 21.5 % (20.0-51.0); MEAN CELL VOLUME 93 fl (80.0-100.0); MEAN CORPUSCULAR HEMOGLOBIN 33 pg (27-31); MEAN CORPUSCULAR HGB CONC 36 g/dl (33.0-37.0); MEAN PLATELET VOLUME 9.5 fl (7.4-10.4); MONO # 0.8 K/mm3 (0.1-0.6); MONO % 10.6 % (1.7-9.3); PLATELET COUNT 153 K/mm3 (130-400); RED BLOOD COUNT 4.72 M/mm3 (4.20-5.60); REDCELL DISTRIBUTION WIDTH-CV 12.1 % (11.5-14.5)
[2023-08-02 06:17] LABS: CALCIUM 8.8 mg/dL (8.4-10.2); CREATININE, serum 1.04 mg/dL (0.72-1.25); POTASSIUM 4.4 mmol/L (3.5-4.5)
--- NOTE | 2023-08-02 07:00 | NUR ---
REPORT RECEIVED FROM PATRIZIA CUEVAS. PT RESTING IN BED, VSS, ON ROOM AIR. PT DENIES CHEST PAIN. CATH SITE TO R GROIN WNL, SMALL AMOUNT OF DRAINAGE NOTED TO DRESSING. PT ALERT AND ORIENTED, UP IN BEDSIDE CHAIR, CALL LIGHT IN REACH.
[2023-08-02] MEDS ORDERED: Isosorbide Mononitrate CR (24-HR) 60 MG TAB PO SCH (09:30)
[2023-08-02] MEDS ORDERED: ISOSORBIDE MON120 MG PO (11:27)
--- NOTE | 2023-08-02 12:17 | NUR ---
PT STABLE THROUGHOUT MORNING, DENIES CHEST PAIN. PERIPHERAL IVS TO BOTH ARMS DISCONTINUED. PT GIVEN FOLLOW UP APPT INFORMATION AND INSTRUCTED TO CHANGE DOSE AND FREQUENCY OF IMDUR. PT AND VERBALIZED UNDERSTANDING. PT DISCHARGED AMBULATORY TO HOME AT 1143.
== END 2023-08-02 11:43 | disposition home or self-care (01) | DRG 251 ==
LOC: COL.ER 13:07 → ICU 16:20
PROVIDERS: Emergency Medicine; Internal Medicine; ADMIT Internal Medicine
PROC: 02703ZZ Dilation of Coronary Artery, One Artery, Percutaneous Approach (ICD-10-PCS; principal; 2023-08-01)
PROC: B2111ZZ Fluoroscopy of Multiple Coronary Arteries using Low Osmolar Contrast (ICD-10-PCS; 2023-08-01)
PROC: 4A023N7 Measurement of Cardiac Sampling and Pressure, Left Heart, Percutaneous Approach (ICD-10-PCS; 2023-08-01)
DX: I25.110 Atherosclerotic heart disease of native coronary artery with unstable angina pectoris (principal); T82.855A Stenosis of coronary artery stent, initial encounter; I10 Essential (primary) hypertension; E78.5 Hyperlipidemia, unspecified; E11.9 Type 2 diabetes mellitus without complications; I08.0 Rheumatic disorders of both mitral and aortic valves; Y83.8 Other surgical procedures as the cause of abnormal reaction of the patient, or of later complication, without mention of misadventure at the time of the procedure; H26.9 Unspecified cataract; Z88.1 Allergy status to other antibiotic agents; Z88.8 Allergy status to other drugs, medicaments and biological substances; Z95.5 Presence of coronary angioplasty implant and graft; Z79.82 Long term (current) use of aspirin; Z79.899 Other long term (current) drug therapy; Z79.02 Long term (current) use of antithrombotics/antiplatelets; I25.2 Old myocardial infarction
CPT/HCPCS: J0583; J1644; J1815; J2250; J2305; J3010; Q9967

== ENCOUNTER 2023-09-05 14:08 | Outpatient (RCR) | payer MEDICARE, OTHER ==
[~2023-09-05 14:08] MED LIST changes: +ISOSORBIDE MON120 MG PO; +JARDIANCE10 PO
== END 2023-09-08 | disposition home or self-care (01) ==
LOC: COL.CR
DX: Z48.812 Encounter for surgical aftercare following surgery on the circulatory system (principal); Z95.5 Presence of coronary angioplasty implant and graft

== ENCOUNTER 2023-11-07 12:03 | Outpatient (RCR) | payer MEDICARE, OTHER ==
[~2023-11-07 12:03] MED LIST changes: +PROAIR HFA0.09 MG/AC IH
== END 2023-11-08 | disposition home or self-care (01) ==
LOC: COL.CR
DX: Z48.812 Encounter for surgical aftercare following surgery on the circulatory system (principal); Z95.5 Presence of coronary angioplasty implant and graft

== ENCOUNTER 2024-02-01 09:48 | Observation (INO) | payer MEDICARE, OTHER ==
[~2024-02-01] VITALS: Ht 152.4 cm; Wt 94.0 kg
[2024-02-01] MEDS ORDERED: Aspirin 325 MG TAB PO ONE (10:00)
[2024-02-01 10:15] LABS: BASO # 0.1 K/mm3 (0.0-0.2); BASO % 0.8 % (0.0-2.0); EOS # 0.3 K/mm3 (0.0-0.7); EOS % 4.2 % (0.0-4.0); GRAN # 4.8 K/mm3 (1.4-6.5); GRAN % 62.9 % (42.2-75.2); HEMATOCRIT 47.3 % (42.0-52.0); HEMOGLOBIN 16.6 g/dl (13.5-18.0); LYMPH # 1.7 K/mm3 (1.2-3.4); LYMPH % 22.3 % (20.0-51.0); MEAN CELL VOLUME 97 fl (80.0-100.0); MEAN CORPUSCULAR HEMOGLOBIN 34 pg (27-31); MEAN CORPUSCULAR HGB CONC 35 g/dl (33.0-37.0); MEAN PLATELET VOLUME 9.8 fl (7.4-10.4); MONO # 0.8 K/mm3 (0.1-0.6); MONO % 9.7 % (1.7-9.3); PLATELET COUNT 181 K/mm3 (130-400); REDCELL DISTRIBUTION WIDTH-CV 12.3 % (11.5-14.5)
[2024-02-01 10:26] LABS: INR 1.1 (0.8-3.0); PROTHROMBIN TIME 11.9 SECONDS (9.7-12.8)
[2024-02-01 10:28] LABS: ALBUMIN 4.1 g/dL (3.4-4.8); CALCIUM 9.5 mg/dL (8.4-10.2); CREATININE, serum 1.03 mg/dL (0.72-1.25); POTASSIUM 4.6 mEq/L (3.5-4.5); TOTAL PROTEIN 7.6 g/dl (6.2-8.1)
[2024-02-01 10:29] LABS: PARTIAL THROMBOPLASTIN TIME 22.5 SECONDS (26.0-37.0)
[2024-02-01 10:35] LABS: TROPONIN-I 0.013 ng/mL (0.00-0.033)
[2024-02-01] MEDS ORDERED: Heparin/D5W 250 ML IV SCH (13:00)
[2024-02-01] MEDS ORDERED: Polyethylene Glycol 3350 17 GM PDS PO PRN (13:00)
[2024-02-01] MEDS ORDERED: Acetaminophen 325 MG TAB PO PRN (13:00)
[2024-02-01] MEDS ORDERED: Heparin 5,000 UNITS/ML 1 ML VIAL IV PRN (13:00)
[2024-02-01] MEDS ORDERED: Heparin 5,000 UNITS/ML 1 ML VIAL IV ONE (13:00)
[2024-02-01] MEDS ORDERED: Ondansetron 4 MG/2 ML VIAL IV PRN (13:00)
[2024-02-01] MEDS ORDERED: Docusate Sodium 100 MG CAP PO PRN (13:00)
[2024-02-01] MEDS ORDERED: GARLIC100 MG PO (13:16)
[2024-02-01] MEDS ORDERED: NATURAL E400 IU PO (13:18)
[2024-02-01] MEDS ORDERED: VTAMINC250TA PO (13:18)
[2024-02-01] MEDS ORDERED: ZINC SULFATE 1566 MG PO (13:19)
[2024-02-01] MEDS ORDERED: B COMPLEX #11 TA1 PO (13:20)
[2024-02-01] MEDS ORDERED: COENZYME Q-1030 MG PO (13:21)
[2024-02-01 14:14] VITALS: BP 150/84; PULSE 63; TEMP 97.7
--- NOTE | 2024-02-01 16:16 | NUR ---
PT ARRIVES TO ROOM AT 1416. PT DENIES PAIN, SOB AND NAUSEA. SHIFT ASSESSMENT COMPLETED AT THIS TIME. PT A&OX4. AT BEDSIDE. PT REPORTS A RECENT DIAGNOSIS IN THE LAST YEAR OF DIABETES BUT DOES NOT CHECK BLOOD SUGARS AT HOME. HEPARIN INFUSING AT 11.5ML/HR IN LEFT WRIST IV. CALL LIGHT WITHIN REACH.
[2024-02-01 17:00] VITALS: BP_SYST 123
[2024-02-01] MEDS ORDERED: Insulin Lispro (HumaLOG) SQ SCH (17:00)
[2024-02-01 19:34] VITALS: BP 123/72; PULSE 59; TEMP 98.1
--- NOTE | 2024-02-01 19:56 | NUR ---
Bedside report given to PATRIZIA Otriz by this nurse and SARAH Corral. Pt continues to deny chest or SOA. Denies needs at this time. Gtt verified with oncoming nurse.
--- NOTE | 2024-02-01 20:14 | NUR ---
LAB INFORMED THIS RN OF HEP XA VALUE OF 0.80, PER PROTOCOL, HEPARIN INFUSION STOPPED FOR 1 HOUR AND WILL RESUME AT 2109.
[2024-02-01] MEDS ORDERED: Atorvastatin 80 MG TAB PO SCH (21:00)
[2024-02-01] MEDS ORDERED: Ranolazine ER 500 MG TAB PO SCH (21:00)
[2024-02-01 21:14] VITALS: BP_SYST 123
--- NOTE | 2024-02-01 21:17 | NUR ---
PATIENT IS RESTING IN BED WATCHING TV. HE REPORTS SOME PAIN IN THE CENTER OF CHEST WHICH HE DESCRIBES A PRESSURE FEELING AND RATES 2/10. DENIES ANY CHEST TIGHTNESS, SHORTNESS OF BREATH, OR NAUSEA. HE UNDERSTANDS THAT HE IS TO BE NPO AFTER MIDNIGHT. CALL LIGHT IS WITHIN REACH. BED IS LOCKED AND IN LOW POSITION. HEPARIN DRIP IS ALSO RESUMED AT THIS TIME AT THE LOWER RATE OF 9.5 ML/HR.
[2024-02-01 23:32] VITALS: BP 137/78; PULSE 54; TEMP 97.7
[2024-02-02] VITALS (11 sets, daily range): BP systolic 115–158; BP diastolic 70–81; PULSE 54–83; TEMP 97.6–97.7
[2024-02-02 03:28] LABS: BASO # 0.1 K/mm3 (0.0-0.2); BASO % 0.9 % (0.0-2.0); EOS # 0.3 K/mm3 (0.0-0.7); GRAN # 2.7 K/mm3 (1.4-6.5); GRAN % 48.1 % (42.2-75.2); HEMOGLOBIN 15.2 g/dl (13.5-18.0); LYMPH # 1.9 K/mm3 (1.2-3.4); MEAN CELL VOLUME 96 fl (80.0-100.0); MEAN CORPUSCULAR HEMOGLOBIN 34 pg (27-31); MEAN CORPUSCULAR HGB CONC 35 g/dl (33.0-37.0); MEAN PLATELET VOLUME 9.6 fl (7.4-10.4); MONO # 0.6 K/mm3 (0.1-0.6); MONO % 10.8 % (1.7-9.3); PLATELET COUNT 144 K/mm3 (130-400); RED BLOOD COUNT 4.48 M/mm3 (4.20-5.60); REDCELL DISTRIBUTION WIDTH-CV 12.3 % (11.5-14.5)
[2024-02-02 03:42] LABS: CALCIUM 8.8 mg/dL (8.4-10.2); CREATININE, serum 1.03 mg/dL (0.72-1.25); POTASSIUM 4.1 mEq/L (3.5-4.5)
--- NOTE | 2024-02-02 06:30 | NUR ---
BEDSIDE SHIFT REPORT RECIEVED AT THIS TIME.
[2024-02-02] MEDS ORDERED: Isosorbide Mononitrate CR (24-HR) 30 MG TAB PO SCH (07:00)
[2024-02-02] MEDS ORDERED: Dextrose 50% Water 25 GM/50 ML SYRINGE IV PRN (07:30)
[2024-02-02] MEDS ORDERED: Glucagon 1 MG VIAL IM PRN (07:30)
[2024-02-02] MEDS ORDERED: Dextrose (Glucose) 15 GM (4 x 3.75 GM) Chewable TABLET PACK PO PRN (07:30)
--- NOTE | 2024-02-02 08:27 | NUR ---
SHIFT ASSESSMENT COMPLETED AT THIS TIME. PT DENIES PAIN, NAUSEA, AND SOB. PT RESTINGIN BED WATCHIN G TV. PT REMAINS NPO FOR NST THIS MORNING. CALL LIGHT WITHIN REACH.
[2024-02-02] MEDS ORDERED: Empagliflozin 10 MG TAB PO SCH (09:00)
[2024-02-02] MEDS ORDERED: Ezetimibe 10 MG TAB PO SCH (09:00)
[2024-02-02] MEDS ORDERED: Clopidogrel 75 MG TAB PO SCH (09:00)
[2024-02-02] MEDS ORDERED: Omega-3 Fatty Acid Esters (OTC) 1,000 MG CAP PO SCH (09:00)
[2024-02-02] MEDS ORDERED: Bisoprolol 5 MG TAB PO SCH (09:00)
--- NOTE | 2024-02-02 09:23 | NUR ---
NADIA met with patient and Suzanna ([phone]) to complete initial assessment for discharge planning. Suzanna is designated as DPOA for patient. Patient and live in [place] and patient sees Dr. Carlos as his PCP. He uses [facility] and [facility]. Patient denies having any DME and reports to be independent with all activities. Patient plans to return home at [place]. Discharge plan: Home
--- NOTE | 2024-02-02 09:31 | NUR ---
PER JESSICA WITH DR. CRAIG, THIS NURSE ADMINISTERED ALL SCHEDULDED MORNING MEDICATIONS WITHOUT COMPLICATIONS. MEDICATIONS ADMINSITERED WITH SIPS OF WATER R/T NPO STATUS IN PLACE. NO FURTHER NEEDS AT THIS TIME. LUCAS LIGHT WITHIN REACH.
--- NOTE | 2024-02-02 10:30 | NUR ---
PT ESCORTED VIA WHEELCHAIR TO NST. HEPARIN RATE DROPPED TO 7.5ML/HR DUE TO [facility] LAB RESULTS.
[2024-02-02] MEDS ORDERED: Regadenoson 0.08 MG/ML 5 ML SYRINGE IV SCH (11:02)
--- NOTE | 2024-02-02 11:46 | NUR ---
PATIENT CAME BACK FROM [facility]
--- NOTE | 2024-02-02 11:55 | NUR ---
Data: Spiritual care visit attempted during Boiler Tube Reamer rounds. Patient was not in room. Visitor stated Patient was having "nuclear tests." Assessment: None. Patient unavailable. Plan of Care: Chaplains will remain available as needed/requested while Patient is admitted to this hospital.
[2024-02-02] MEDS ORDERED: DEXTROSE IV SCH (13:00)
[2024-02-02] MEDS ORDERED: HEPARIN IV SCH (13:00)
[2024-02-02] MEDS ORDERED: IMDUR 60MG60 MG/TAB PO (13:07)
--- NOTE | 2024-02-02 14:00 | NUR ---
DISCHARGE ORDERS RECEIVED. DISCHARGE EDUCATION AND INSTRUCTIONS PROVIDED AT THIS TIME. PT VOICES UNDERSTANDING. AT BEDSIDE. INT'S DC'D. TELE DC'D. PT VOICES NO CONCERNS OR QUESTIONS AT THIS TIME.
--- NOTE | 2024-02-02 14:05 | NUR ---
PT ESCORTED TO PRIVATE VEHICLE WITH FAMILY BY PCT.
== END 2024-02-02 14:00 | disposition home or self-care (01) ==
LOC: COL.ER 09:48 → MEDICAL 12:49 → EDBEDREQSVC 13:43 → MEDICAL 02-02 14:00
PROVIDERS: Family Medicine; ADMIT Hospitalist
DX: I25.119 Atherosclerotic heart disease of native coronary artery with unspecified angina pectoris (principal); I10 Essential (primary) hypertension; E11.9 Type 2 diabetes mellitus without complications; E78.5 Hyperlipidemia, unspecified; Z95.5 Presence of coronary angioplasty implant and graft; Z79.82 Long term (current) use of aspirin; Z79.899 Other long term (current) drug therapy; Z79.84 Long term (current) use of oral hypoglycemic drugs; Z79.02 Long term (current) use of antithrombotics/antiplatelets
CPT/HCPCS: A9270; A9500-JZ; G0378; J1644; J1815; J2785

== ENCOUNTER 2024-03-07 16:36 | Emergency (ER) | payer MEDICARE, OTHER ==
[~2024-03-07] VITALS: Ht 175.3 cm; Wt 91.8 kg
[~2024-03-07 16:36] MED LIST changes: +B COMPLEX #11 TA1 PO; +COENZYME Q-1030 MG PO; +GARLIC100 MG PO; +NATURAL E400 IU PO; +VTAMINC250TA PO; +ZINC SULFATE 1566 MG PO
[2024-03-07 16:41] VITALS: TEMP 97.5
[2024-03-07 16:55] LABS: BASO % 0.7 % (0.0-2.0); EOS # 0.3 K/mm3 (0.0-0.7); EOS % 5.9 % (0.0-4.0); GRAN % 42.9 % (42.2-75.2); HEMATOCRIT 46.6 % (42.0-52.0); HEMOGLOBIN 16.3 g/dl (13.5-18.0); LYMPH # 1.6 K/mm3 (1.2-3.4); LYMPH % 34.5 % (20.0-51.0); MEAN CELL VOLUME 95 fl (80.0-100.0); MEAN CORPUSCULAR HEMOGLOBIN 33 pg (27-31); MEAN CORPUSCULAR HGB CONC 35 g/dl (33.0-37.0); MEAN PLATELET VOLUME 10.2 fl (7.4-10.4); MONO # 0.7 K/mm3 (0.1-0.6); MONO % 15.8 % (1.7-9.3); PLATELET COUNT 145 K/mm3 (130-400); RED BLOOD COUNT 4.91 M/mm3 (4.20-5.60); REDCELL DISTRIBUTION WIDTH-CV 12.2 % (11.5-14.5)
[2024-03-07 17:35] LABS: ALANINE AMINOTRANSFERASE 24 U/L (0-55); ALBUMIN 3.4 g/dL (3.4-4.8); ALKALINE PHOSPHATASE 72 U/L (40-150); ANION GAP 10 mmol/L (7-16); AST,SGOT 24 U/L (5-34); BILIRUBIN,TOTAL 0.8 mg/dL (0.2-1.2); BLOOD UREA NITROGEN 19 mg/dL (8-26); CALCIUM 8.5 mg/dL (8.4-10.2); CHLORIDE 105 mEq/L (98-107); CREATININE, serum 0.98 mg/dL (0.72-1.25); GLUCOSE 159 mg/dL (70-99); POTASSIUM 3.9 mEq/L (3.5-4.5); SODIUM 137 mEq/L (136-145); TOTAL PROTEIN 6.9 g/dl (6.2-8.1)
[2024-03-07 17:41] LABS: INR 1.2 (0.8-3.0); PROTHROMBIN TIME 12.7 SECONDS (9.7-12.8)
[2024-03-07 17:43] LABS: TROPONIN-I < 0.010 ng/mL (0.00-0.033)
[2024-03-07 17:47] LABS: D-DIMER < 200.00 ng/mLDDu (200-230)
[2024-03-07 19:28] VITALS: BP 118/72; PULSE 60
== END 2024-03-07 19:28 | disposition home or self-care (01) ==
LOC: COL.ER 16:36
PROVIDERS: Emergency Medicine; Nurse Practitioner Primary Care
DX: R07.9 Chest pain, unspecified (principal); Z95.5 Presence of coronary angioplasty implant and graft